=== PATIENT | female | born 1975 | race Caucasian/White ===

== ENCOUNTER 2024-06-11 02:27 | Observation (INO) | payer OTHER ==
--- NOTE | 2024-06-11 03:09 | ED ---
Skin/Abscess/FB HPI - General Source: patient, RN notes reviewed Mode of arrival: wheelchair Limitations: no limitations <Jasmina Mckeon - Last Filed: 06/11/24 04:02> <EnglishHeather - Last Filed: 06/11/24 07:12> - General Chief complaint: Skin/Abscess/Foreign Body Stated complaint: Spider bite Time Seen by Provider: 06/11/24 03:04 - History of Present Illness Initial comments: 49-year-old female presenting for spider bite to left buttocks x 2 days. States she saw a spider crawl into her boyfriend's shoe, and the next day she woke up with a bump on the left buttocks which is why she believes she was bit by s pider. She also has what she believes is a spider bite on the right sided lower back that she lanced herself and is now draining. Also endorses nausea, vomiting, and chills over the past few days. States she has a history of MRSA. (Jasmina Mckeon) - Related Data Allergies Allergy/AdvReac Type Severity Reaction Status Date / Time nitrofurantoin Allergy Anaphylaxis Verified 06/11/24 02:30 [From Macrobid] Sulfa (Sulfonamide AdvReac Nausea & Verified 06/11/24 02:30 Antibiotics) Vomiting Review of Systems ROS Other: All systems not noted in ROS Statement are negative. <Jasmina Mckeon - Last Filed: 06/11/24 04:02> ROS Other: All systems not noted in ROS Statement are negative. <RomanianHeather - Last Filed: 06/11/24 07:12> ROS Statement: Those systems with pertinent positive or pertinent negative responses have been documented in the HPI. Past Medical History Past Medical History: No Reported History History of Any Multi-Drug Resistant Organisms: MRSA Date of last positivie culture/infection: 2018 MDRO Source:: leg Past Surgical History: Back Surgery, Section Additional Past Surgical History / Comment(s): back, left femur, right leg I and D Past Psychological History: No Psychological Hx Reported Smoking Status: Vaper Past Alcohol Use History: None Reported Past Drug Use History: None Reported <Jackie Mckeonna - Last Filed: 06/11/24 04:02> General Exam Limitations: no limitations General appearance: alert, in no apparent distress Head exam: Present: atraumatic, normocephalic, normal inspection GI/Abdominal exam: Present: soft, normal bowel sounds. Absent: distended, tenderness, guarding, rebound, rigid Neurological exam: Present: alert, oriented X3 Psychiatric exam: Present: normal affect, normal mood Skin exam: Present: warm, dry, intact, normal color, rash (5 x 5 cm area of erythema and tenderness present on left buttocks extending into the rectum. No induration or fluctuance. No drainage) <Jasmina Mckeon - Last Filed: 06/11/24 04:02> Course Vital Signs 06/11/24 06/11/24 02:30 06:15 Temperature 97.4 F L 98.1 F Pulse Rate 97 101 H Respiratory 22 18 Rate Blood Pressure 135/82 128/76 O2 Sat by Pulse 100 98 Oximetry Medical Decision Making <Jasmina Mckeon - Last Filed: 06/11/24 04:02> - Lab Data Result diagrams: 06/11/24 03:48 06/11/24 03:48 <Heather Dietz - Last Filed: 06/11/24 07:12> - Medical Decision Making Was pt. sent in by a medical professional or institution (Dr. PA, ENERGY CONSERVATION DIRECTOR, urgent care, hospital, or care home...) When possible be specific @ -No Did you speak to anyone other than the patient for history (EMS, parent, family, police, friend...)? What history was obtained from this source @ -No Did you review nursing and triage notes (agree or disagree)? Why? @ -I reviewed and agree with nursing and triage notes Were old charts reviewed (outside hosp., previous admission, EMS record, old EKG, old radiological studies, urgent care reports/EKG's, care home records)? Report findings @ -No old charts were reviewed Differential Diagnosis (chest pain, altered mental status, abdominal pain women, abdominal pain men, vaginal bleeding, weakness, fever, dyspnea, syncope, headache, dizziness, GI bleed, back pain, seizure, CVA, palpatations, mental health, musculoskeletal)? @ -Cellulitis, abscess, perirectal abscess, insect bite, sepsis EKG interpreted by me (3pts min.). @ -None X-rays interpreted by me (1pt min.). @ -None done CT interpreted by me (1pt min.). @ -CT pelvis pending at time of signout U/S interpreted by me (1pt. min.). @ -None done What testing was considered but not performed or refused? (CT, X-rays, U/S, labs)? Why? @ -None What meds were considered but not given or refused? Why? @ -None Did you discuss the management of the patient with other professionals (professionals i.e. Dr., PA, ENERGY CONSERVATION DIRECTOR, lab, RT, psych nurse, social media senior associate, slat basket maker, teacher, radiological defense officer, child welfare caseworker)? Give summary @ -No Was smoking cessation discussed for >3mins.? @ -No Was critical care preformed (if so, how long)? @ -No Were there social determinants of health that impacted care today? How? (Homelessness, low income, unemployed, alcoholism, drug addiction, transportation, low edu. Level, literacy, decrease access to med. care, detention, rehab)? @ -No Was there de-escalation of care discussed even if they declined (Discuss DNR or withdrawal of care, Hospice)? DNR status @ -No What co-morbidities impacted this encounter? (DM, HTN, Smoking, COPD, CAD, Cancer, CVA, ARF, Chemo, Hep., AIDS, mental health diagnosis, sleep apnea, morbid obesity)? @ -None Was patient admitted / discharged? Hospital course, mention meds given and route, prescriptions, significant lab abnormalities, going to OR and other pertinent info. @ -49-year-old female presenting for left buttocks rash x 2 days with associated nausea, vomiting, and chills. She believes she was bit by spider. On physical examination there is a 5 x 5 cm area of erythema with no induration, fluctuance, or drainage. Provided with IV fluids, Toradol, and Zofran. Case signed out to my ED attending pending lab work, CT pelvis, and disposition. (Jasmina Mckeon) Patient is a 49 y/o female presenting today for left buttock rash, nausea vo miting and chills. Signed out to myself pending CT. Pt afebrile on arrival, mildly tachypneic, No blood pressure 135/82, heart rate 97. Patient signed out to myself at [address] of the pelvis out of concern for possible perirectal abscess. Patient does have a leukocytosis w/ WBC count 20.6. On my assessment patient is hyperventilating, anxious, stating that she is "sensory overloaded", and was reportedly very anxious at time of arrival. I do suspect patient's RR and HR 2/2 to this, as opposed to sepsis as she is nontoxic appearing and afebrile. CT scan did result with perirectal abscess. On reassessment patient also states has a history of MRSA, ordered Rocephin, Flagyl and vancomycin. I did attempt to perform a rectal exam however patient declined rectal exam 2/2 pain. Blood culture will be added. Lactic 1.3, patient does not meet criteria for severe sepsis. Valium ordered for anxiety control. Case discussed with Dr. Melara, general surgery, kindly accepted pt for admission. Undiagnosed new problem with uncertain prognosis? @ -No Drug Therapy requiring intensive monitoring for toxicity (Heparin, Nitro, Insulin, Cardizem)? @ -No Were any procedures done? @ -No Diagnosis/symptom? @Perianal abscess Acute, or Chronic, or Acute on Chronic? @Acute Uncomplicated (without systemic symptoms) or Complicated (systemic symptoms)? Complicated Side effects of treatment? @ -No Exacerbation, Progression, or Severe Exacerbation? @ -No (Romanian,Heather) - Lab Data Lab Results 06/11/24 06/11/24 06/11/24 Range/Units 03:48 03:48 03:48 WBC 20.6 H (3.8-10.6) k/uL RBC 4.18 (3.80-5.40) m/uL Hgb 12.2 (11.4-16.0) gm/dL Hct 38.4 (34.0-46.0) % MCV 91.9 (80.0-100.0) fL MCH 29.1 (25.0-35.0) pg MCHC 31.7 (31.0-37.0) g/dL RDW 12.6 (11.5-15.5) % Plt Count 315 (150-450) k/uL MPV 8.0 Neutrophils % 87 % Lymphocytes % 8 % Monocytes % 4 % Eosinophils % 0 % Basophils % 0 % Neutrophils # 17.8 H (1.3-7.7) k/uL Lymphocytes # 1.7 (1.0-4.8) k/uL Monocytes # 0.8 (0-1.0) k/uL Eosinophils # 0.1 (0-0.7) k/uL Basophils # 0.0 (0-0.2) k/uL Sodium 133 L (137-145) mmol/L Potassium 3.9 (3.5-5.1) mmol/L Chloride 103 (98-107) mmol/L Carbon Dioxide 23 (22-30) mmol/L Anion Gap 7 mmol/L BUN 13 (7-17) mg/dL Creatinine 0.42 L (0.52-1.04) mg/dL Est GFR (CKD-EPI)AfAm >90 (>60 ml/min/1.73 sqM) Est GFR (CKD-EPI)NonAf >90 (>60 ml/min/1.73 sqM) Glucose 157 H (74-99) mg/dL Plasma Lactic Acid Nicholas 1.3 (0.7-2.0) mmol/L Calcium 8.9 (8.4-10.2) mg/dL Total Bilirubin 0.5 (0.2-1.3) mg/dL AST 24 (14-36) U/L ALT 17 (4-34) U/L Alkaline Phosphatase 74 (38-126) U/L C-Reactive Protein 5.8 H (<1.0) mg/dL Total Protein 5.9 L (6.3-8.2) g/dL Albumin 3.4 L (3.5-5.0) g/dL Influenza Type A (PCR) (Not Detectd) Influenza Type B (PCR) (Not Detectd) RSV (PCR) (Not Detectd) SARS-CoV-2 (PCR) (Not Detectd) 06/11/24 Range/Units 03:48 WBC (3.8-10.6) k/uL RBC (3.80-5.40) m/uL Hgb (11.4-16.0) gm/dL Hct (34.0-46.0) % MCV (80.0-100.0) fL MCH (25.0-35.0) pg MCHC (31.0-37.0) g/dL RDW (11.5-15.5) % Plt Count (150-450) k/uL MPV Neutrophils % % Lymphocytes % % Monocytes % % Eosinophils % % Basophils % % Neutrophils # (1.3-7.7) k/uL Lymphocytes # (1.0-4.8) k/uL Monocytes # (0-1.0) k/uL Eosinophils # (0-0.7) k/uL Basophils # (0-0.2) k/uL Sodium (137-145) mmol/L Potassium (3.5-5.1) mmol/L Chloride (98-107) mmol/L Carbon Dioxide (22-30) mmol/L Anion Gap mmol/L BUN (7-17) mg/dL Creatinine (0.52-1.04) mg/dL Est GFR (CKD-EPI)AfAm (>60 ml/min/1.73 sqM) Est GFR (CKD-EPI)NonAf (>60 ml/min/1.73 sqM) Glucose (74-99) mg/dL Plasma Lactic Acid Nicholas (0.7-2.0) mmol/L Calcium (8.4-10.2) mg/dL Total Bilirubin (0.2-1.3) mg/dL AST (14-36) U/L ALT (4-34) U/L Alkaline Phosphatase (38-126) U/L C-Reactive Protein (<1.0) mg/dL Total Protein (6.3-8.2) g/dL Albumin (3.5-5.0) g/dL Influenza Type A (PCR) Not Detected (Not Detectd) Influenza Type B (PCR) Not Detected (Not Detectd) RSV (PCR) Not Detected (Not Detectd) SARS-CoV-2 (PCR) Not Detected (Not Detectd) Disposition <Jasmina Mckeon - Last Filed: 06/11/24 04:02> <Heather Dietz - Last Filed: 06/11/24 07:12> Clinical Impression: Perianal abscess Disposition: ADMITTED IP TO THIS HOSP Condition: Stable
[2024-06-11] MEDS: SODIUM CHLORIDE 0.9% 1,000 ML IV STA (03:51)
[2024-06-11] MEDS: ONDANSETRON 4 MG/2 ML VIAL IVP STA (03:56)
[2024-06-11] MEDS: KETOROLAC 15 MG/ML 1 ML VIAL IVP STA (03:57)
[2024-06-11 04:06] LABS: Basophils % (A) 0 %; Eosinophils # (A) 0.1 k/uL (0-0.7); Eosinophils % (A) 0 %; HCT 38.4 % (34.0-46.0); HGB 12.2 gm/dL (11.4-16.0); Lymphocytes # (A) 1.7 k/uL (1.0-4.8); Lymphocytes % (A) 8 %; MCH 29.1 pg (25.0-35.0); MCHC 31.7 g/dL (31.0-37.0); MCV 91.9 fL (80.0-100.0); Monocytes # (A) 0.8 k/uL (0-1.0); Monocytes % (A) 4 %; Neutrophils # (A) 17.8 k/uL (1.3-7.7); Neutrophils % (A) 87 %; Platelet Count 315 k/uL (150-450); RBC 4.18 m/uL (3.80-5.40); RDW 12.6 % (11.5-15.5); WBC 20.6 k/uL (3.8-10.6)
[2024-06-11 04:17] LABS: ALT 17 U/L (4-34); AST 24 U/L (14-36); African American GFR (CKD) >90 (>60 ml/min/1.73 sqM); Albumin 3.4 g/dL (3.5-5.0); Alkaline Phosphatase 74 U/L (38-126); Anion Gap 7 mmol/L; Blood Urea Nitrogen 13 mg/dL (7-17); C Reactive Protein 5.8 mg/dL (<1.0); Calcium 8.9 mg/dL (8.4-10.2); Carbon Dioxide 23 mmol/L (22-30); Chloride 103 mmol/L (98-107); Glucose 157 mg/dL (74-99); Non-African American GFR(CKD) >90 (>60 ml/min/1.73 sqM); Potassium 3.9 mmol/L (3.5-5.1); Sodium 133 mmol/L (137-145); Total Bilirubin 0.5 mg/dL (0.2-1.3); Total Protein 5.9 g/dL (6.3-8.2)
[2024-06-11] MEDS: LORazepam 2 MG/ML INJ IV STA (04:27)
[2024-06-11 04:40] LABS: Influenza A Not Detected (Not Detectd); Influenza B Not Detected (Not Detectd); RSV Not Detected (Not Detectd)
--- NOTE | 2024-06-11 06:05 | CT ---
EXAM: CT Pelvis With Intravenous Contrast CLINICAL HISTORY: ITS.REASON CT Reason: r/o rectal abscess TECHNIQUE: Axial computed tomography images of the pelvis with intravenous contrast. CTDI is 13.4 mGy and DLP is 582.2 mGy-cm. This CT exam was performed using one or more of the following dose reduction techniques: automated exposure control, adjustment of the mA and/or kV according to patient size, and/or use of iterative reconstruction technique. COMPARISON: No relevant prior studies available. FINDINGS: Bowel: Unremarkable. No obstruction. No mucosal thickening. Appendix: No findings to suggest acute appendicitis. Intraperitoneal space: Unremarkable. No free air. No significant fluid collection. Bladder: Unremarkable. No mass. Reproductive: Unremarkable as visualized. Bones/joints: Left hip arthroplasty is in place. Partial characterization of the lumbar spine fusion hardware. No acute fracture. No dislocation. Soft tissues: Soft tissue stranding is seen within the left issue annual fat extending to the medial gluteal cleft with soft tissue thickening seen along the medial left gluteal cleft. Vasculature: Unremarkable. No lower abdominal aortic aneurysm. Lymph nodes: Unremarkable. No enlarged lymph nodes. IMPRESSION: Left-sided perianal soft tissue swelling without evidence of rim- enhancing fluid collection to suggest abscess. This likely represents underlying cellulitis.
[2024-06-11] MEDS ORDERED: VANCOMYCIN IV PER PHARMACY 1 EACH MISC MISCELLANE PRN (06:07)
[2024-06-11] MEDS: cefTRIAXone IN SWFI 1,000 MG/10 ML SYRINGE IVP STA (06:13)
[2024-06-11] MEDS: metroNIDAZOLE-NS PMX 500 MG in SALINE 1 100ML.BAG IVPB STA (06:13)
[2024-06-11] MEDS: HYDROmorphone 1 MG/ML 1 ML SYRINGE IVP STA (06:14)
[2024-06-11] MEDS ORDERED: ONDANSETRON 4 MG/2 ML VIAL IVP PRN (06:28)
[2024-06-11] MEDS ORDERED: NALOXONE 0.4 MG/ML 1 ML VIAL IV PRN (06:28)
[2024-06-11] MEDS ORDERED: HYDROmorphone 0.5 MG/0.5 ML SYRINGE IVP PRN (06:28)
[2024-06-11 06:33] VITALS: BP 128/76; PULSE 101; RESP 18; TEMP 98.1
[2024-06-11] MEDS: SODIUM CHLORIDE 0.9% 1,000 ML IV SCH (06:57)
[2024-06-11] MEDS: VANCOMYCIN 1,000 MG in SODIUM CHLORIDE 0.9% 250 ML IVPB ONE (08:59)
[2024-06-11] MEDS: KETOROLAC 15 MG/ML 1 ML VIAL IVP PRN (09:01)
[2024-06-11] MEDS: HYDROmorphone 1 MG/ML 1 ML SYRINGE IVP PRN (09:50)
--- NOTE | 2024-06-11 11:08 | P.GSHP ---
History of Present Illness H&P Date: 06/11/24 CHIEF COMPLAINT: Left buttock cellulitis HISTORY OF PRESENT ILLNESS: This is a 49-year-old female who presented to the hospital with concerns of pain in the left buttocks and possible abscess. She r eports she has had swelling pain and redness for the past week. No drainage from the area. She reports having had possible exposure to a spider bite. She reports having a small abscess on the lower right side of her back which she lanced herself and is currently draining. She does have a prior history of MRSA with prior skin abscesses. Patient does report prior history of drug use and possible alcohol use. She is very anxious and hyperactive. She reports that she has not used any substances in about 50 days. She is currently on IV antibiotics. CT scan of the pelvis had reported left-sided perineal soft tissue swelling. No evidence of fluid or abscess. Findings consistent with cell ulitis. Patient seen and examined in the ER. Admitted to surgical service. PAST MEDICAL HISTORY: MRSA, PAST SURGICAL HISTORY: Back surgery, , right leg I&D MEDICATIONS: See below ALLERGIES: See below SOCIAL HISTORY: History of substance abuse and EtOH use REVIEW OF SYSTEMS: CONSTITUTIONAL: Denies fever or chills. HEENT: Denies blurred vision, vision changes, or eye pain. Denies hemoptysis CARDIOVASCULAR: Denies chest pain or pressure. RESPIRATORY: No shortness of breath. GASTROINTESTINAL: See HPI for pertinent findings HEMATOLOGIC: Denies bleeding disorders. GENITOURINARY: Denies any blood in urine or increased urinary frequency. SKIN: Denies pruitis. Denies rash. PHYSICAL EXAM: VITAL SIGNS: Reviewed GENERAL: Well-developed in no acute distress. Psych: Patient is very hyperactive, anxious and fidgety SKIN: Left gluteal cleft to the perianal area with evidence of swelling, erythema and induration. Tenderness with palpation. No drainage. No fluctuance. Also right side lower back small area of induration with purulent drainage noted. Minimal erythema. NEUROLOGIC: Alert and oriented. Cranial nerves II through XII grossly intact. LABORATORY DATA: WBC is 20.6 Hgb 12.2 platelets 315 Sodium 133 potassium 3.9 creatinine 0.42 CRP 5.8 Influenza, RSV COVID-19 not detected IMAGING: CT scan of the pelvis reports left-sided perianal soft tissue swelling without evidence of rim-enhancing fluid collection to suggest abscess. This likely represents underlying cellulitis. ASSESSMENT: 1. Left gluteal and perineal cellulitis. No fluid collection on CAT scan 2. History of MRSA PLAN: -Continue IV antibiotics -Warm compresses ordered -No surgical intervention planned -Medical service consulted for medical management -Agree with ID consult -Okay to resume regular diet Physician Settlement Worker note has been reviewed by physician. Signing provider agrees with the documented findings, assessment, and plan of care. Past Medical History Past Medical History: No Reported History History of Any Multi-Drug Resistant Organisms: MRSA Date of last positivie culture/infection: 2018 MDRO Source:: leg Past Surgical History: Back Surgery, Section Additional Past Surgical History / Comment(s): back, left femur, right leg I and D Past Psychological History: No Psychological Hx Reported Smoking Status: Vaper Past Alcohol Use History: None Reported Past Drug Use History: None Reported Medications and Allergies Home Medications Medication Instructions Recorded Confirmed Type No Known Home Medications 06/11/24 06/11/24 History Allergies Allergy/AdvReac Type Severity Reaction Status Date / Time nitrofurantoin Allergy Anaphylaxis Verified 06/11/24 07:52 [From Macrobid] Sulfa (Sulfonamide AdvReac Nausea & Verified 06/11/24 07:52 Antibiotics) Vomiting Surgical - Exam Vital Signs Temp Pulse Resp BP Pulse Ox 97.4 F L 97 22 135/82 100 06/11/24 02:30 06/11/24 02:30 06/11/24 02:30 06/11/24 02:30 06/11/24 02:30 Results - Labs 06/11/24 03:48 06/11/24 03:48 Abnormal Lab Results - Last 24 Hours (Table) 06/11/24 06/11/24 Range/Units 03:48 03:48 WBC 20.6 H (3.8-10.6) k/uL Neutrophils # 17.8 H (1.3-7.7) k/uL Sodium 133 L (137-145) mmol/L Creatinine 0.42 L (0.52-1.04) mg/dL Glucose 157 H (74-99) mg/dL C-Reactive Protein 5.8 H (<1.0) mg/dL Total Protein 5.9 L (6.3-8.2) g/dL Albumin 3.4 L (3.5-5.0) g/dL Diabetes panel 06/11/24 Range/Units 03:48 Sodium 133 L (137-145) mmol/L Potassium 3.9 (3.5-5.1) mmol/L Chloride 103 (98-107) mmol/L Carbon Dioxide 23 (22-30) mmol/L BUN 13 (7-17) mg/dL Creatinine 0.42 L (0.52-1.04) mg/dL Glucose 157 H (74-99) mg/dL Calcium 8.9 (8.4-10.2) mg/dL AST 24 (14-36) U/L ALT 17 (4-34) U/L Alkaline Phosphatase 74 (38-126) U/L Total Protein 5.9 L (6.3-8.2) g/dL Albumin 3.4 L (3.5-5.0) g/dL Calcium panel 06/11/24 Range/Units 03:48 Calcium 8.9 (8.4-10.2) mg/dL Albumin 3.4 L (3.5-5.0) g/dL Pituitary panel 06/11/24 Range/Units 03:48 Sodium 133 L (137-145) mmol/L Potassium 3.9 (3.5-5.1) mmol/L Chloride 103 (98-107) mmol/L Carbon Dioxide 23 (22-30) mmol/L BUN 13 (7-17) mg/dL Creatinine 0.42 L (0.52-1.04) mg/dL Glucose 157 H (74-99) mg/dL Calcium 8.9 (8.4-10.2) mg/dL Adrenal panel 06/11/24 Range/Units 03:48 Sodium 133 L (137-145) mmol/L Potassium 3.9 (3.5-5.1) mmol/L Chloride 103 (98-107) mmol/L Carbon Dioxide 23 (22-30) mmol/L BUN 13 (7-17) mg/dL Creatinine 0.42 L (0.52-1.04) mg/dL Glucose 157 H (74-99) mg/dL Calcium 8.9 (8.4-10.2) mg/dL Total Bilirubin 0.5 (0.2-1.3) mg/dL AST 24 (14-36) U/L ALT 17 (4-34) U/L Alkaline Phosphatase 74 (38-126) U/L Total Protein 5.9 L (6.3-8.2) g/dL Albumin 3.4 L (3.5-5.0) g/dL
[2024-06-11] MEDS: ALPRAZolam 0.25 MG TAB PO PRN (11:57)
[2024-06-11] MEDS: ACETAMINOPHEN TAB 325 MG TAB PO PRN (12:42)
--- NOTE | 2024-06-11 14:57 | P.DS ---
Providers Date of admission: 06/11/24 06:28 Expected date of discharge: 06/11/24 Attending physician: Arnie Chang Consults: 06/11/24 10:06 Consult Physician Routine Consulting Provider: Venkatesh Farmer Consult Reason/Comments: medical management Do you want consulting provider notified?: Yes 06/11/24 10:39 Consult Physician Urgent Consulting Provider: Zafar Renae Consult Reason/Comments: cellulitis, perianal infection, mrsa hx Do you want consulting provider notified?: Yes Primary care physician: Stated None Hospital Course: 1. Left gluteal and perianal cellulitis. No fluid collection on CAT scan 2. History of MRSA Hospital course This is a 49-year-old female who presented to the hospital with concerns of pain in the left buttocks and possible abscess. She reports she has had swelling pain and redness for the past week. No drainage from the area. She reports having had possible exposure to a spider bite. She reports having a small abscess on the lower right side of her back which she lanced herself and is currently draining. She does have a prior history of MRSA with prior skin abscesses. Patient does report prior history of drug use and possible alcohol use. She is very anxious and hyperactive. She reports that she has not used any substances in about 50 days. She is currently on IV antibiotics. CT scan of the pelvis had reported left-sided perineal soft tissue swelling. No evidence of fluid or abscess. Findings consistent with cellulitis. Cellulitis she was remain on on IV antibiotics. No surgical intervention planned. Patient left AGAINST MEDICAL ADVICE. Physician Purse Framer note has been reviewed by physician. Signing provider agrees with the documented findings, assessment, and plan of care. Patient Condition at Discharge: Stable Plan - Discharge Summary New Discharge Prescriptions: No Action No Known Home Medications Discharge Medication List No Known Home Medications 06/11/24 [History] Follow up Appointment(s)/Referral(s): None,Stated [Primary Care Provider] - 1-2 days
[2024-06-11] MEDS ORDERED: VANCOMYCIN 1,000 MG in SODIUM CHLORIDE 0.9% 250 ML IVPB SCH (16:00)
[2024-06-12] MEDS ORDERED: VANCOMYCIN TROUGH DUE 1 EACH MISC MISCELLANE ONE (15:00)
== END 2024-06-11 13:03 | disposition left against medical advice (07) ==
LOC: EC 02:27 → 4SSUR 06:28 → 6NMEDSUR 06:40
PROVIDERS: ADMIT Surgery; ATTEND Surgery
DX: L03.317 Cellulitis of buttock (principal); K61.0 Anal abscess; Z86.14 Personal history of Methicillin resistant Staphylococcus aureus infection; Z53.29 Procedure and treatment not carried out because of patient's decision for other reasons; Z88.2 Allergy status to sulfonamides; Z88.1 Allergy status to other antibiotic agents
CPT/HCPCS: 96376; 96365; 96366; 96367; 96375; 99284; 36415; 80053; 83605; 85025; 86140; 87040; 87636; 72193; G0378; J3370; J3360; J2405; J0696; J1171; J1885; Q9967; J1836